=== PATIENT | female | born 1955 | race Caucasian/White ===

== ENCOUNTER → 2017-04-11 | Outpatient (CLI) | payer OTHER ==
[~2017-04-11] MED LIST: IOPAMIDOL (ISOVUE-300) 100 ML BTL ONE
== END ==
LOC: FIMAGING 08:55
DX: C34.31 Malignant neoplasm of lower lobe, right bronchus or lung (principal)
CPT/HCPCS: Q9967

== ENCOUNTER 2017-08-07 08:11 | Day surgery (SDC) | payer OTHER ==
[2017-08-07] MEDS ORDERED: LR 1,000 ML IV ONE (08:40)
--- NOTE | 2017-08-07 08:58 | PDANEPAE ---
ANE History of Present Illness Anemia ANE Past Medical History - Cardiovascular History Hx Hypertension: No Hx Arrhythmias: No Hx Chest Pain: No Hx Coronary Artery / Peripheral Vascular Disease: No Hx CHF / Valvular Disease: No Hx Palpitations: No - Pulmonary History Hx COPD: No Hx Asthma/Reactive Airway Disease: No Hx Recent Upper Respiratory Infection: Yes Hx Oxygen in Use at Home: Yes O2 in Use at Home (L/minute): 2L Hx Sleep Apnea: No Sleep Apnea Screening Result - Last Documented: Negative Pulmonary History Comment: INTERMITTENT USE - Neurologic History Hx Cerebrovascular Accident: No Hx Seizures: No Hx Dementia: No - Endocrine History Hx Diabetes: No - Renal History Hx Renal Disorders: No - Liver History Hx Hepatic Disorders: No - Neurological & Psychiatric Hx Hx Neurological and Psychiatric Disorders: No - Cancer History Hx Cancer: Yes Cancer History Comment: LUNG CANCER - Congenital Disorder History Hx Congenital Disorders: No - GI History Hx Gastrointestinal Disorders: Yes Gastrointestinal History Comment: 2 MTHS AGO NEEDED 2 UNITS PRBC'S - Other Health History Other Health History: 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 WOUNDS ARE HEALING. ANEMIA - Chronic Pain History Chronic Pain: Yes (RIGHT SIDE OF BACK) - Surgical History Prior Surgeries: NONE ANE Review of Systems Review of Systems: - Exercise capacity METS (RN): 3 METS ANE Patient History - Allergies Allergies/Adverse Reactions: Penicillins Allergy (Verified 08/07/17 08:40) - NPO status NPO Since - Liquids (Date): 08/06/17 NPO Since - Liquids (Time): 23:00 NPO Since - Solids (Date): 08/06/17 NPO Since - Solids (Time): 09:00 - Anes Hx Anes Hx: no prior problems - Smoking Hx Smoking Status: Never smoked - Family Anes Hx Family Hx Anesthesia Complications: NONE ANE Labs/Vital Signs - Labs Result Diagrams: 08/07/17 09:05 08/07/17 09:05 - Vital Signs Blood Pressure: 105/69 Heart Rate: 107 Respiratory Rate: 16 O2 Sat (%): 93 Height: 160.02 cm Weight: 40.823 kg ANE Physical Exam - Airway Neck exam: FROM Mallampati Score: Class 2 Mouth exam: normal dental/mouth exam - Pulmonary Pulmonary: no respiratory distress - Cardiovascular Cardiovascular: regular rate and rhythym - ASA Status ASA Status: III ANE Anesthesia Plan Anesthesia Plan: MAC (vs IV GA)
--- NOTE | 2017-08-07 09:04 | PDGENHP ---
History & Physical Chief Complaint: fe def anemia History of Present Illness: metastatic cancer. on NSAID's. iron def anemia Pertinent Past, Social, Family History: no alcohol, no tobacco. no cc Relevant Physical Exam: a+ox3. CTA. S1S2, RRR. +BS, soft nt Cardiorespiratory Assessment: class 3
[2017-08-07 09:16] LABS: PLATELET COUNT 594 10^3/uL (150-400)
--- NOTE | 2017-08-07 09:29 | CPEKG ---
Heart Rate: 106 RR Interval: 566 P-R Interval: 106 QRSD Interval: 72 QT Interval: 336 QTC Interval: 447 P [place]: 69 QRS [place]: 69 T Wave [place]: 45 EKG Severity - OTHERWISE NORMAL ECG - EKG Impression: SINUS TACHYCARDIA EKG Impression: LOW VOLTAGE IN FRONTAL LEADS Electronically Signed By: Suleman Jean 08-Aug-2017 13:58:49
[2017-08-07] MEDS ORDERED: PROPOFOL/EMULSION 500 MG/50 ML BOTTLE IV ONE (09:36)
[2017-08-07] MEDS ORDERED: ONDANSETRON 4 MG/2 ML VIAL IVP PRN (09:44)
[2017-08-07] MEDS ORDERED: fentaNYL 100 MCG/2 ML INJ IVP PRN (09:44)
[2017-08-07] MEDS ORDERED: NALOXONE HCL 0.4 MG/ML INJ IVP PRN (09:44)
[2017-08-07] MEDS ORDERED: ALBUTEROL 3 ML DEYVIAL IH PRN (10:01)
[2017-08-07] MEDS ORDERED: ALBUTEROL 3 ML DEYVIAL ONE (10:21)
--- NOTE | 2017-08-07 10:24 | POSTANESTH ---
Post Anesthetic Evaluation Cardiovascular Status: Similar to Pre-Op Cond Respiratory Status: Similar to Pre-op Cond., Other, See Comment (Coughing. Will give albuterol treatment.) Level of Consciousness/Mental Status: Alert and Oriented Pain Control: Adequate, Prn Tx Ordered Nausea/Vomiting Control: Adequate, Prn Tx Ordered Complications Possibly Related to Anesthesia: None Noted
--- NOTE | 2017-08-07 10:28 | GIREPORT ---
[facility] - Endoscopy Department Patient Name: Landon Chavez Procedure Date: 08/07/2017 9:38 AM Patient Type: Outpatient Attending MD/ ER Physician: Rosa Epstein Procedure: Colonoscopy Indications: Iron deficiency anemia Providers: Davonte Walters MD Referring MD: Eyad Cummins MD, Jonathan Gutierres MD, Nguyễn Etienne MD Medicines: Sedation Administered by an Anesthesia Professional, Total IV Anesthesi a (TIVA) Complications: No immediate complications. Description of Procedure: After obtaining informed consent, the scope was passed under direct vis ion. Throughout the procedure, the patient's blood pressure, pulse, and oxyg en saturations were monitored continuously. The Colonoscope with irrigatio n channel was introduced through the anus and advanced to the cecum, identified by appendiceal orifice and ileocecal valve. The colonoscopy was performed without difficulty. The patient tolerated the procedure well. The quality of the bowel preparation was good. Findings: The digital rectal exam was normal. The entire examined colon appeared normal. Estimated Blood Loss: Estimated blood loss: none. Post Op Diagnosis: - The entire examined colon is normal. - No specimens collected. Recommendation: - To visualize the small bowel, perform video capsule endoscopy at appointment to be scheduled. - Resume previous diet. - See EGD for other recommendations - Discharge patient to home (ambulatory). - Return to referring physician as previously scheduled. - Thank you for allowing me to help in your patient's care. Do not hesi roy to call with any questions. Attending Participation: I personally performed the entire procedure. Selena Arauz M.D Davonte W MD Selena 08/07/2017 10:27:50 AM This report has been signed electronicallyMathew MD Selena Number of Addenda: 0 Note Initiated On: 08/07/2017 9:38 AM Total Procedure Duration Time 0 hours 11 minutes 22 seconds [email or web address]
[2017-08-07 10:29] VITALS: TEMP 98.2
--- NOTE | 2017-08-07 10:32 | GIREPORT ---
[facility] Surgical Services - Endoscopy Department Patient Name: Landon Chavez Procedure Date: 08/07/2017 8:54 AM Patient Type: Outpatient Attending MD/ ER Physician: Rosa Epstein Procedure: Upper GI endoscopy Indications: Suspected upper gastrointestinal bleeding in patient with unexplained i ryne deficiency anemia Providers: Davonte Walters MD Referring MD: Eyad Cummins MD, Jonathan Gutierres MD, Nguyễn Etienne MD Medicines: Sedation Required Anesthesia Staff Assistance Complications: No immediate complications. Estimated blood loss: Minimal. Description of Procedure: After obtaining informed consent, the endoscope was passed under direct vision. Throughout the procedure, the patient's blood pressure, pulse, and oxygen saturations were monitored continuously. The Endoscope was intro duced through the mouth, and advanced to the third part of duodenum. The uppe r GI endoscopy was accomplished without difficulty. The patient tolerated th e procedure well. Findings: The examined esophagus was normal. A small hiatal hernia was present. Scattered minimal inflammation characterized by erythema and friability was found in the gastric antrum. Biopsies were taken with a cold forceps fo r histology. Estimated blood loss was minimal. The examined duodenum was normal. Biopsies for histology were taken wit h a cold forceps for evaluation of celiac disease. Estimated blood loss was minimal. A mild extrinsic deformity was found in the second portion of the duode num. The exam was otherwise without abnormality. Estimated Blood Loss: Estimated blood loss was minimal. Post Op Diagnosis: - Normal esophagus. - Small hiatal hernia. - Gastritis. Biopsied. - Normal examined duodenum. Biopsied. - Duodenal deformity. Query extrinsic compression? - The examination was otherwise normal. Recommendation: - Await pathology results. - My office will call with the pathology result with 5-7 days. If you h ave not heard from my office by 12-14, do not assume the pathology is lisha l, please call [phone] to get the pathology reults. - Use Protonix (pantoprazole) 40 mg PO daily for 2 months. Take 30-60 minutes before breakfast. - Perform a colonoscopy today. (No lesions noted to account for anemia - recommend small bowel capsule study. - Patient has a contact number available for emergencies. The signs and symptoms of potential delayed complications were discussed with the pat ient. Return to normal activities tomorrow. Written discharge instructions we re provided to the patient. - Continue present medications. - Return to referring physician as previously scheduled. - Thank you for allowing me to help in your patient's care. Do not hesi roy to call with any questions. Attending Participation: I personally performed the entire procedure. Selena Arauz M.D Davonte Walters MD 08/07/2017 10:32:39 AM This report has been signed electronicallyMathew MD Selena Number of Addenda: 0 Note Initiated On: 08/07/2017 8:54 AM [email or web address]
[2017-08-07 11:02] VITALS: BP 104/61; PULSE 89; RESP 16; O2SAT 90
== END 2017-08-07 11:20 | disposition home or self-care (01) ==
LOC: FSGY 08:11
PROVIDERS: ATTEND Internal Medicine Gastroenterology
DX: D50.9 Iron deficiency anemia, unspecified (principal); K29.50 Unspecified chronic gastritis without bleeding; K44.9 Diaphragmatic hernia without obstruction or gangrene
CPT/HCPCS: J2704; J7613